=== PATIENT | female | born 1950 | race American Indian/Alaskan Native ===

== ENCOUNTER → 2019-03-06 10:55 | Outpatient (CLI) | payer MEDICARE, OTHER, SELFPAY ==
--- NOTE | 2019-03-06 11:00 | DI.MRI.S_ITS ---
PROCEDURE: MR CERVICAL SPINE WO CON INDICATIONS: Cervical radiculopathy status post C6 to T1 ACDF TECHNIQUE: Noncontrast sagittal T1 spin echo and T2 fast spin echo, sagittal STIR, foraminal oblique sagittal T2 fast spin echo, and axial gradient echo or T2 fast spin echo through the cervical spine. COMPARISON: [facility], RG, XR C-SPINE 2-3V, 01/05/2019, 10:14. CT, CT CERVICAL SPINE WO CON, 11/28/2015, 13:05. FINDINGS: Image quality: Excellent. Alignment and Curvature: There is a trace C4-C5 and C5-C6 retrolisthesis. There is mild reversal of normal upper cervical spine curvature. Bones: Postsurgical changes compatible C6-T1 ACDF. Mild reactive endplate changes noted adjacent to the C4-C5 and C5-C6 discs. Spinal Cord: Visualized spinal cord has normal size and signal. No cerebellar tonsillar herniation. Paraspinous Soft Tissues: No paravertebral masses. Prevertebral soft tissues are normal in thickness. C2-C3: Loss of disc signal. No central stenosis. Mild right and moderate left facet hypertrophy. Mild right and moderate left neural foraminal narrowing. No neural impingement. C3-C4: Loss of the signal. Minimal, diffuse disc bulge. Mild right and moderate left facet hypertrophy. No central stenosis. Moderate right and severe left neural foraminal narrowing and compression of the exiting left C4 nerve root. C4-C5: Loss of disc signal and slight loss of disc height. Mild to moderate diffuse disc bulge. Mild bilateral facet hypertrophy. Moderate right uncovertebral joint hypertrophy. Mild narrowing of the central canal. Severe right and moderate left neural foraminal narrowing with compression of the exiting right C5 nerve root. C5-C6: Loss of disc signal and height. Mild, diffuse disc bulge. No central stenosis. Mild bilateral facet hypertrophy. Moderate left uncovertebral joint hypertrophy. Mild right and severe left neural foraminal narrowing with slight compression of the exiting left C6 nerve root. C6-C7: Status post discectomy and fusion. No central stenosis. Mild bilateral facet hypertrophy. Severe right and moderate left neural foraminal narrowing with compression of the exiting right C7 nerve root. C7-T1: Status post discectomy and fusion. No central stenosis. Mild bilateral facet hypertrophy. Moderate bilateral neural foraminal narrowing. No neural impingement. IMPRESSION: 1. Status post C6-T1 ACDF. 2. Multilevel degenerative disc disease. 3. Multilevel facet and uncovertebral joint arthropathy. 4. Mild C4-C5 central canal narrowing. 5. Moderate right and severe left C3-C4 neural foraminal narrowing. Severe right and moderate left C4-C5 neural foraminal narrowing. Mild right and severe left C5-C6 neural foraminal narrowing. Severe right and moderate left C6 and C7 neural foraminal narrowing. Moderate bilateral C7-T1 neural frontal narrowing. Mild right and moderate left C2-C3 are foraminal narrowing. 6. Compression of the exiting left C4 nerve root, the exiting right C5 nerve root, the exiting left C6 nerve root and the exiting right C7 nerve root secondary to neural foraminal narrowing. Please correlate with clinical data. Dictated by: Magy Graf MD, PhD on 03/06/2019 at 16:38 Approved by: Magy Graf MD, PhD on 03/06/2019 at 16:53
== END ==
PROVIDERS: PCP Family Medicine; Visit Provider Physical Medicine & Rehabilitation
DX: M50.31 Other cervical disc degeneration, high cervical region (principal); M50.321 Other cervical disc degeneration at C4-C5 level; M50.322 Other cervical disc degeneration at C5-C6 level; M47.812 Spondylosis without myelopathy or radiculopathy, cervical region; M47.813 Spondylosis without myelopathy or radiculopathy, cervicothoracic region; M48.02 Spinal stenosis, cervical region; M48.03 Spinal stenosis, cervicothoracic region; Z98.1 Arthrodesis status
CPT/HCPCS: 72141

== ENCOUNTER 2019-06-12 09:31 | Outpatient (CLI) | payer MEDICARE, OTHER, SELFPAY ==
[2019-06-12] VITALS (8 sets, daily range): BP systolic 116–150; BP diastolic 45–88; PULSE 86–95; RESP 16; TEMP 37.1; O2SAT 96–99
--- NOTE | 2019-06-12 09:33 | DI.RAD.S_ITS ---
PROCEDURE: PAIN C/T INTERLAMINAR INJECT INDICATIONS: RADICULOPATHY FINDINGS: Fluoroscopic spot filming was performed to verify placement of spinal needles at the C6-C7 level(s), as labeled on the films. Appropriate location(s) of the needle tip(s) was confirmed by injection of iodinated contrast. Dictated by: Jonathan Sue M.D. on 06/12/2019 at 12:47 Approved by: Jonathan Sue M.D. on 06/12/2019 at 12:48
--- NOTE | 2019-06-12 10:40 | P.PCN_ITS ---
Procedures Date/Time Date of procedure: 06/12/19 Time of procedure: 11:20 General Procedure description: PREOP DIAGNOSIS 1. CERVICAL STENOSIS, 2. CERVICAL HNP WITH UPPER EXTREMITY RADICULAR FEATURES, POST OP DIAGNOSIS 1. CERVICAL STENOSIS, 2. CERVICAL HNP WITH UPPER EXTREMITY RADICULAR FEATURES, PROCEDURES 1. FLUORSCOPICALLY GUIDED CONTRAST CONTROLLED INTERLAMINAR EPIDURAL STEROID INJECTION - C6/7 TL NAHED PHYSICIAN: Tommy Beltran DO INDICATIONS Virgil is referred by Dr. Peck for treatment of Cervical HNP with Upper Extremity Paresthesias. FINDINGS Cervical Stenosis due to disc deterioration and nerve root irritation and nerve root irritation DESCRIPTION OF PROCEDURE Fluoroscopically guided, contrast-controlled C6/7 translaminar epidural steroid injection with conscious sedation. Following review of allergy and review of potential side effects and complications, including, but not necessarily limited to, infection, allergic reaction, local tissue breakdown, temporary as well as permanent nerve injury, s troke, paralysis, and possible , the patient indicated that patient understood and agreed to proceed. An informed consent document was signed by the patient, witnessed by a nurse, and placed in the patient's chart. Additionally, other treatment options including modalities, medications, and physical therapy were reviewed with the patient. After review of previous anaesthesic history and IV conscious sedation the patient was deemed safe to proceed with todays procedure with IV conscious sedation as ASA class II designation. Safety time-out was performed to confirm patient ID, procedure to be performed and site of procedure. IV sedation was accomplished with a combination of 3mg of Versed and 50mcg of Fentanyl administered by the RN after DO order, titrated to patient comfort during the course of the procedure while the patient remained responsive to all verbal commands. In the prone position, following sterile prep and drape of the cervical region, the C6/7 translaminar space was identified fluoroscopically. The skin was anesthetized via a 25-gauge 1.5-inch needle with 1% lidocaine solution. At this point, a 25-gauge, 2.5-inch short bevel spinal needle was atraumatically introduced and advanced under fluoroscopic guidance into epidural space at the C6/7 translaminar space. Depth was confirmed on lateral view. Radiological data, including multiple fluoroscopic views of the cervical spine, reveal a spinal needle at the C6/7 translaminar space. Lateral views then show placement of the needle in the epidural space. Subsequent views show contrast material flowing superiorly and inferiorly in the epidural space. DSA fluoroscopy with live contrast injection, once again, confirmed no vascular or intrathecal uptake. At this point, using loss of resistance technique with saline and air, the epidural space was entered. Following negative aspiration, injection of approximately 1.5 cc of Isovue-200 with live fluoroscopy in the AP view confirmed epidural flow in the epidural space without vascular or intrathecal uptake observed. Subsequently, a test dose of 1 cc of 1% lidocaine solution was injected and patient was observed for two minutes without signs or symptoms of complications, including abdominal pain, shortness of breath, bilateral upper or lower extremity weakness, nausea and vomiting, prior to steroid injection. At this point, 2cc or 20mg of dexamethasone was then injected without incident. The patient tolerated the procedure well without signs or symptoms of complications prior to being transferred to the recovery area for further mon itoring, The patient was then transferred to the recovery area where they were observed for an appropriate period of time after the injection. The patient reported a VAS score of 6 prior to the procedure and a post-procedure VAS of 0. Total Fluoroscopy Time: 37.0 seconds Total Conscious Time: 24min POST OP INSTRUCTIONS The patient was provided a Pain Log to continue to record their response to the target-specific procedure prior to follow-up visit with the referring provider. Additionally, specific post-injection care instructions and a contact number to our office were provided if concerns arise regarding possible complications associated with the procedure are suspected. Tommy Beltran DO Complications: none
[2019-06-12] MEDS: MIDAZOLAM 5 MG/5 ML VIAL IV (11:05)
[2019-06-12] MEDS: fentaNYL 100 MCG/2 ML INJ 50 MCG IV (11:06)
[2019-06-12] MEDS: IOPAMIDOL 15 ML VIAL 3 ML INJ (11:09)
[2019-06-12] MEDS: DEXAMETHASONE 10 MG/ML VIAL 30 MG INJ (11:09)
[2019-06-12] MEDS: LIDOCAINE 1% 20 ML 5 ML INJ (11:09)
--- NOTE | 2019-06-12 11:12 | PC.NURSE ---
ASSISTING PT OFF TABLE AND TRANSPORTING TO POST PROC AREA IN STABLE CONDITION.
== END 2019-06-12 11:44 | disposition home or self-care (01) ==
LOC: RAD 09:33
PROVIDERS: PCP Family Medicine; Visit Provider Physical Medicine & Rehabilitation
DX: M50.123 Cervical disc disorder at C6-C7 level with radiculopathy (principal); M48.02 Spinal stenosis, cervical region; R20.2 Paresthesia of skin
CPT/HCPCS: 62321; 99152; J1100; J2250; J3010

== ENCOUNTER 2022-12-01 21:56 | Emergency (ER) | payer MEDICARE, OTHER, SELFPAY ==
[2022-12-01 22:14] VITALS: BP 141/78; PULSE 83; RESP 16; TEMP 36.5; O2SAT 95; BMI 23.1
[2022-12-02] VITALS (7 sets, daily range): BP systolic 127–162; BP diastolic 68–76; PULSE 85–100; RESP 16; O2SAT 91–94
[2022-12-02] MEDS: MORPHINE 4 MG/ML INJ IV (01:38)
[2022-12-02] MEDS: ONDANSETRON 4 MG/2 ML INJ IV ×2 (01:39→03:56)
[2022-12-02] MEDS: HYDROMORPHONE 0.5 MG INJ IV (02:51)
[2022-12-02 02:56] LABS: Add Manual Diff / Slide Review NO; Basophils Absolute Auto 0 /uL (0-100); Basophils Percent Auto 0.3 % (0-2); Eosinophils Absolute Auto 0 /uL (0-450); Hemoglobin 13.2 g/dL (12.0-16.0); Lymphocytes Absolute Auto 600 /uL (1100-4500); Mean Corpuscular HGB Conc 34.7 % (30-36); Mean Corpuscular Hemoglobin 36.8 PG (26-34); Mean Corpuscular Volume 106.2 fL (80-100); Monocytes Absolute Auto 900 /uL (0-900); Monocytes Percent Auto 6.1 % (3-14); Neutrophils Absolute Auto 12900 /uL (1500-7000); Neutrophils Percent Auto 89.6 % (50-75); Platelet Count 228 X10^3/uL (150-400); Red Blood Cell Count 3.58 X10^6/uL (4.0-5.2); Red Cell Distribution Width 13.3 % (11.6-14.8); White Blood Cell Count 14.4 X10^3/uL (4.5-11.0)
[2022-12-02 03:02] LABS: Alanine Aminotransferase 68 IU/L (<35); Albumin 4.5 g/dL (3.5-5.0); Albumin Globulin Ratio 1.3 (1.0-2.8); Ammonia (NH3) 19 umol/L (9-30); BUN Creatinine Ratio 10.8 (6-22); Bilirubin Total 0.9 mg/dL (0.2-1.3); Blood Urea Nitrogen 4 mg/dL (7-17); Calcium 8.6 mg/dL (8.4-10.2); Carbon Dioxide 25 mmol/L (22-32); Chloride 99 mmol/L (98-107); Estimated Glomerular Filt Rate > 60 mL/min (>60); Globulin 3.6 g/dL (1.7-4.1); Glucose 147 mg/dL (80-110); Lipase 47 U/L (23-300); Sodium 136 mmol/L (137-145); Total Protein 8.1 g/dL (6.3-8.2)
[2022-12-02 03:05] LABS: HEMOLYSIS 71 (0-50)
[2022-12-02 03:06] LABS: Alkaline Phosphatase 103 U/L (38-126); Aspartate Aminotransferase 93 IU/L (14-36); Potassium 3.5 mmol/L (3.4-5.1)
--- NOTE | 2022-12-02 03:23 | ED_ITS ---
HPI - Abdominal Pain General Chief Complaint: Abdominal Pain Stated Complaint: RUQ pain n/v Time Seen by Provider: 12/02/22 02:29 Source: patient Mode of arrival: EMS Limitations: no limitations History of Present Illness HPI narrative: This is a 77-year-old female with history of, GERD, almost 24 hours post ERCP. Patient states that she would ERCP for stone in 1 of the ducts. She states procedure went well afterwards she was feeling okay but states she still had a lot of medications on board. She states she is supposed to be discharged home with some pain and nausea medication but it was not sent she started having nausea vomiting and increasing pain. She tried taking 2 Tylenol and 2 tramadol that she has not home but was not able to keep these down. She denies fevers or chills. She states pain is sort of epigastric right upper quadrant. It is improved after pain medications in the department. She denies fevers. She is had nausea but no persistent vomiting after antinausea medicine. She states she has been stooling. No black or bloody stools. No dysuria urgency or frequency. She denies any flank pain. Patient states her ERCP was took several months to be set up. She states she is supposed to have her gallbladder out at some point after the ERCP. Patient states she is allergic to lisinopril. Related Data Home Medications Medication Instructions Recorded Confirmed albuterol sulfate [ProAir HFA] inhalation PRN 02/21/19 06/05/19 amlodipine 10 mg tablet 10 mg PO DAILY 02/21/19 06/05/19 beclomethasone dipropionate 80 mcg inhalation 02/21/19 06/05/19 mcg/actuation aerosol inhaler esomeprazole magnesium 40 mg 40 mg PO DAILY 02/21/19 06/05/19 capsule,delayed release hydrochlorothiazide 12.5 mg tablet 12.5 mg PO DAILY 02/21/19 06/05/19 losartan 25 mg tablet 25 mg PO DAILY 02/21/19 06/05/19 nortriptyline 10 mg capsule 10 mg PO DAILY 02/21/19 06/05/19 paroxetine HCl 20 mg tablet 20 mg PO DAILY 02/21/19 06/05/19 propranolol 10 mg tablet 10 mg PO DAILY 02/21/19 06/05/19 tramadol 50 mg tablet 100 mg PO BID PRN 02/21/19 06/05/19 Previous Rx's Medication Instructions Recorded gabapentin 600 mg tablet See Rx Instructions .Route 07/09/19 .COMPLEX #60 tabs oxycodone-acetaminophen 5 mg-325 1 tab PO Q6H PRN pain #5 tabs 12/02/22 mg tablet (Percocet) Allergies Allergy/AdvReac Type Severity Reaction Status Date / Time No Known Drug Allergies Allergy Verified 07/04/19 15:12 Review of Systems Review of Systems ROS Unobtainable: All systems reviewed & are unremarkable except as noted in HPI and below Patient History Medical History (Updated 12/02/22 @ 03:48 by Gilda Hale DO) Facet arthropathy, lumbosacral Exam Narrative Exam Narrative: GENERAL: Alert and oriented x three, female in mild distress. HEENT: Head normocephalic, atraumatic, EOMI, pupils reactive, face symmetric, moist mucous membranes NECK: Supple, full range of motion CARDIOVASCULAR: Regular rate and rhythm without murmurs, rubs or gallops. RESPIRATORY: Breath sounds equal bilaterally, no wheezes rales or rhonchi. ABDOMEN: Soft, mild epigastric tenderness.. Normoactive bowel sounds all 4 quad rants. No guarding or rebound, rigidity, no mass : No CVA tenderness EXTREMITIES: Normal range of motion, no clubbing or edema. Neurovascularly intact NEUROLOGICAL: Cranial nerves II through XII grossly intact. Moving all extremities SKIN: Warm, dry, no petechiae, no rashes or lesions. Initial Vital Signs Initial Vital Signs: Vital Signs Temperature 97.7 F 12/01/22 22:14 Pulse Rate 83 12/01/22 22:14 Respiratory Rate 16 12/01/22 22:14 Blood Pressure 141/78 H 12/01/22 22:14 Pulse Oximetry 95 12/01/22 22:14 Oxygen Delivery Method Room Air 12/01/22 22:14 Course Orders Ordered: Discontinued Medications Hydromorphone HCl (Hydromorphone 0.5 Mg Inj) 0.5 mg IV NOW ONE Stop: 12/02/22 02:48 Last Admin: 12/02/22 02:51 Dose: 0.5 mg Documented By: Morphine Sulfate (Morphine 4 Mg/Ml Inj) 4 mg IV NOW ONE Stop: 12/02/22 01:36 Last Admin: 12/02/22 01:38 Dose: 4 mg Documented By: Ondansetron HCl (Ondansetron 4 Mg/2 Ml Inj) 4 mg IV NOW ONE Stop: 12/02/22 01:36 Last Admin: 12/02/22 01:39 Dose: 4 mg Documented By: Ondansetron HCl (Ondansetron 4 Mg Odt Prepack) 1 bottle MISC SEEINSTR ONE Stop: 12/02/22 03:45 Last Admin: 12/02/22 03:56 Dose: 1 bottle Documented By: Ondansetron HCl (Ondansetron 4 Mg/2 Ml Inj) 4 mg IV NOW ONE Stop: 12/02/22 03:54 Last Admin: 12/02/22 03:56 Dose: 4 mg Documented By: Oxycodone/Acetaminophen (Oxycodone/Apap 5/325 Prepack) 1 bottle MISC SEEINSTR ONE Stop: 12/02/22 03:45 Last Admin: 12/02/22 03:56 Dose: 1 bottle Documented By: Vital Signs Vital signs: Vital Signs - 8 hr 12/02/22 01:17 12/02/22 01:17 12/02/22 01:30 Pulse Rate 85 Respiratory Rate Blood Pressure 162/70 H 147/75 H Pulse Oximetry 94 Oxygen Delivery Method 12/02/22 01:30 12/02/22 02:00 12/02/22 02:00 Pulse Rate 92 H 92 H Respiratory Rate Blood Pressure 160/72 H Pulse Oximetry 93 93 Oxygen Delivery Method 12/02/22 02:30 12/02/22 02:30 12/02/22 03:00 Pulse Rate 97 H Respiratory Rate Blood Pressure 141/75 H 144/69 H Pulse Oximetry 91 Oxygen Delivery Method 12/02/22 03:00 12/02/22 03:30 12/02/22 03:30 Pulse Rate 96 H 96 H Respiratory Rate 16 Blood Pressure 127/76 Pulse Oximetry 93 92 Oxygen Delivery Method Room Air 12/02/22 04:00 12/02/22 04:00 Pulse Rate 100 H Respiratory Rate Blood Pressure 133/68 Pulse Oximetry 93 Oxygen Delivery Method MDM - Abdominal Pain Lab Data 12/02/22 02:42 12/02/22 02:42 Labs: Lab Results 12/02/22 12/02/22 12/02/22 Range/Units 02:42 02:42 02:42 WBC 14.4 H (4.5-11.0) X10^3/uL RBC 3.58 L (4.0-5.2) X10^6/uL Hgb 13.2 (12.0-16.0) g/dL Hct 38.0 (36-46) % MCV 106.2 H (80-100) fL MCH 36.8 H (26-34) PG MCHC 34.7 (30-36) % RDW 13.3 (11.6-14.8) % Plt Count 228 (150-400) X10^3/uL Neut % (Auto) 89.6 H (50-75) % Lymph % (Auto) 4.0 L (25-40) % [place] % (Auto) 6.1 (3-14) % Eos % (Auto) 0.0 L (2-4) % Baso % (Auto) 0.3 (0-2) % Neut # (Auto) 45599 H (4169-5559) /uL Lymph # (Auto) 600 L (7515-3754) /uL [place] # (Auto) 900 (0-900) /uL Eos # (Auto) 0 (0-450) /uL Baso # (Auto) 0 (0-100) /uL Sodium 136 L (137-145) mmol/L Potassium 3.5 (3.4-5.1) mmol/L Chloride 99 (98-107) mmol/L Carbon Dioxide 25 (22-32) mmol/L BUN 4 L (7-17) mg/dL Creatinine 0.37 L (0.52-1.04) mg/dL Estimated GFR > 60 (>60) mL/min BUN/Creatinine Ratio 10.8 (6-22) Glucose 147 H (80-110) mg/dL Calcium 8.6 (8.4-10.2) mg/dL Total Bilirubin 0.9 (0.2-1.3) mg/dL AST 93 H (14-36) IU/L ALT 68 H (<35) IU/L Alkaline Phosphatase 103 (38-126) U/L Ammonia 19 (9-30) umol/L Total Protein 8.1 (6.3-8.2) g/dL Albumin 4.5 (3.5-5.0) g/dL Globulin 3.6 (1.7-4.1) g/dL Albumin/Globulin Ratio 1.3 (1.0-2.8) Lipase 47 (23-300) U/L [facility] Narrative Medical decision making narrative: This is a 72-year-old female status post ERCP in the last almost 24 hours. Patient states she was discharged started having some increasing pain nausea and vomiting. She states she is supposed to be discharged with some medications but they did not go through. Patient's labs show leukocytosis of 14, hemoglobin of 13, sodium is 136 renal functions 0.37 with a glucose of 147 AST ALT are 93 and 68 with normal bilirubin and a lipase of 47. Patient has tenderness over the area of her expected procedure. She had some pain medication here felt much better. She was having vomiting but has been able to tolerate some orals in the department. Patient and I discussed imaging as she sure but states she might have had a stent placed. At this time she defers but with the plan to return if she is having persistent symptoms increasing pain fevers as we noted patient can sometimes develop pancreatitis or other complications from ERCP. She states she is well aware of this and if her symptoms are not improving over the next 24 hours or worsening she will return for further evaluation. Discharge Plan Departure Patient Disposition: Home Clinical Impression: Abdominal pain, S/P ERCP Instructions: DI for Endoscopic Retrograde Cholangiopancreatography Activity Restrictions/Additional Instructions: Please follow-up in the next 24-48 hours if your symptoms are not continuing to improve. Call your pack master this morning for additional guidance. You may take Zofran 1 tablet every 6 hours as needed for nausea. You may take Percocet 1-2 tablets every 6 hours as needed for pain. This medica tion can make you sleepy do not drive, perform hazardous activities or make any major decisions while taking it. This medication will make you constipated please take a stool softener once to twice daily until stools are soft and regular. [facility]cription sent to [facility] Please return for fevers, worsening abdominal pain, persistent vomiting, black or bloody stools, lightheadedness or passing out or other new or concerning changes. Prescriptions: New oxycodone-acetaminophen [Percocet] 5-325 mg tablet 1 tab PO Q6H PRN (Reason: pain) Qty: 5 0RF No Action gabapentin 600 mg tablet See Rx Instructions .ROUTE .COMPLEX Qty: 60 2RF Dose Instruction: TAKE 1 TABLET BY MOUTH TWICE DAILY Rx Instructions: TAKE 1 TABLET BY MOUTH TWICE DAILY tramadol 50 mg tablet 100 mg PO BID PRN paroxetine HCl 20 mg tablet 20 mg PO DAILY hydrochlorothiazide 12.5 mg tablet 12.5 mg PO DAILY esomeprazole magnesium 40 mg capsule,delayed release(DR/EC) 40 mg PO DAILY nortriptyline 10 mg capsule 10 mg PO DAILY propranolol 10 mg tablet 10 mg PO DAILY albuterol sulfate inhalation PRN beclomethasone dipropionate 80 mcg/actuation aerosol INHALATION amlodipine 10 mg tablet 10 mg PO DAILY losartan 25 mg tablet 25 mg PO DAILY Referrals: Dante Peck MD [Primary Care Provider] - Stand Alone Forms: Patient Portal/API
[2022-12-02] MEDS: ONDANSETRON 4 MG ODT PREPACK 1 BOTTLE MISC (03:56)
[2022-12-02] MEDS: OXYCODONE/APAP 5/325 PREPACK 1 BOTTLE MISC (03:56)
== END 2022-12-02 04:10 | disposition home or self-care (01) ==
PROVIDERS: Emergency Provider Emergency Medicine; PCP Family Medicine
DX: R10.11 Right upper quadrant pain (principal); R11.2 Nausea with vomiting, unspecified; R79.89 Other specified abnormal findings of blood chemistry
CPT/HCPCS: 80053; 82140; 83690; 85025; 96374; 96375; 96376; 99283; 99284; J1170; J2270; J2405